=== PATIENT | male | born 1935 | race Caucasian/White ===

== ENCOUNTER 2019-07-06 08:00 | Day surgery (SDC) | payer OTHER ==
[~2019-07-06] VITALS: Ht 172.7 cm; Wt 79.4 kg
[~2019-07-06 08:00] MED LIST: ASA81BEC PO; BENADRYL25 MG PO; CIALIS5 MG PO; FAMCYCLOVIR 50500 M1 PO; FLEXERIL PO; IRON18 M1 PO; LISINOPRIL20 MG PO; PRESERVISION A1 EACH PO; RED YEAST RICE600 MG PO; ZOLPIDEM TARTRA10 MG PO
[2019-07-06 08:46] VITALS: BP 139/67
--- NOTE | 2019-07-10 06:06 | O ---
[facility] [place] [address] OPERATIVE REPORT Name: JETT RICE ALICIA Room #: DEP [facility].#: [id number] Admission: 07/06/19 Attend Phys: Barber Orozco MD Discharge: 07/06/19 Date of : 39 Report #: [id number] THIS REPORT FOR: cc: FAM - Family physician unknown FAM - Family physician unknown Barber Orozco MD ~ CC: [facility] unknown AI Orozco DATE OF SERVICE: 07/06/2019 SURGEON: Barber Orozco MD BUSINESS APPLICATIONS SPECIALIST: None. PREOPERATIVE DIAGNOSIS: Bilateral lower lid ectropion. POSTOPERATIVE DIAGNOSIS: Bilateral lower lid ectropion. OPERATION PERFORMED: Bilateral lower lid ectropion repair. ANESTHESIA: Local with IV sedation. COMPLICATIONS: None. INDICATIONS FOR PROCEDURE: This patient has bilateral acquired lower lid ectropion with chronic tearing, keratopathy and discharge. The current procedures are undertaken in order to improve the patient's visual function, lacrimal outflow, and level of comfort. Informed consent was obtained to include but not limit to the risk of loss of vision, bleeding, infection, scarring, failure to improve the problem and need for further surgery. DESCRIPTION OF OPERATION: The patient was taken to the operating room where 2% Xylocaine with epinephrine mixed with equal parts of 0.75% Marcaine with Wydase was administered transcutaneously and transconjunctivally to each lower lid and lateral canthal area. The patient was then prepped and draped in the usual sterile fashion. A Jf clamp was then used to clamp the left lateral canthus following which a sharp canthotomy and cantholysis were performed. The tarsal strip was prepared laterally, removing the lash bearing portion of the redundant lid margin and the redundant tarsal plate. Hemostasis was achieved with a monopolar cautery, as it was throughout the case. The tarsal strip was then secured to the internal portion of the lateral orbital tubercle with two interrupted 5-0 Prolene sutures. The lateral canthal angle was sharply reformed as the subcutaneous structures and the skin were closed with multiple [facility] [address] [place] [address] OPERATIVE REPORT Name: JETT RICE Room #: DEP [facility].#: [id number] Admission: 07/06/19 Attend Phys: Barber Orozco MD Discharge: 07/06/19 Date of : 39 Report #: [id number] interrupted 6-0 plain gut sutures. Attention was then turned to the right side where the same procedure was performed. The wounds were cleaned and dressed with ophthalmic antibiotic ointment. The patient was then transported to the recovery area, having tolerated the procedure well with no anesthetic or operative complications being noted. <ELECTRONICALLY SIGNED> By: Barber Orozco MD 07/10/19 [id number] Barber Orozco MD /nt
== END 2019-07-06 11:05 | disposition home or self-care (01) ==
LOC: OR 08:00 → TBA 08:01 → OR 10:45
DX: H02.105 Unspecified ectropion of left lower eyelid (principal); H02.102 Unspecified ectropion of right lower eyelid; I10 Essential (primary) hypertension; D64.9 Anemia, unspecified; Z98.890 Other specified postprocedural states; Z79.899 Other long term (current) drug therapy; Z11.59 Encounter for screening for other viral diseases; Z98.0 Intestinal bypass and anastomosis status; Z88.8 Allergy status to other drugs, medicaments and biological substances
CPT/HCPCS: 50010; 50101; 50398; 51636; 56527; 56531; 62110; 62850; 70005